=== PATIENT | male | born 1960 | race Caucasian/White ===

== ENCOUNTER → 2022-08-31 12:05 | Outpatient (CLI) | payer BC, SELFPAY ==
--- NOTE | ~2022-08-31 | XR_ITS ---
XR cervical spine 4-5V 08/31/2022 12:25 Indication: Left-sided neck pain. Cervicalgia. Procedure: 5 views of the cervical spine. Comparison: No prior studies for comparison. Findings: Straightening of cervical lordosis. There is severe degenerative disc disease at C4-5, C5-6 and C6-7. There are prominent ventral osteophytes. There is degenerative anterolisthesis at C7-T1. N o prevertebral soft tissue swelling. There is severe multilevel facet hypertrophy. There is mild dext roscoliosis. Lung apices are normal. Impression: 1: Severe cervical spondylosis. Reviewed, dictated and finalized at location A. ER SHIPMENTS Impression: 1: Severe cervical spondylosis.
== END ==
PROVIDERS: PCP Family Medicine; Visit Provider Family Medicine
DX: M47.892 Other spondylosis, cervical region (principal)
CPT/HCPCS: 72050

== ENCOUNTER 2022-10-18 10:00 | Outpatient (RCR) | payer BC, SELFPAY ==
--- NOTE | 2022-09-18 16:51 | PTOPEVAL1 ---
Assessment and note entered by Anita Ibarra, PT, DPT Evaluation Information Assessment Status Evaluation Diagnosis neck pain Onset ~1 year Subjective Information Pt states he has been having neck pain for a about a year. He states he has pain with most motions of his neck. 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 He reports no headaches or disturbed sleeping. Reported Pain Level Pain Score 0: Self Report Assessment PT Clinical Summary Christiano presents to therapy today for his initial evaluation with a diagnosis of neck pain. Today he demonstrates decreased active and passive cervical motion in all directions. He has an increased thoracic kyphosis as well as moderate forward and rounded shoulders. He demonstrates good shoulder ROM and strength. Skilled physical therapy services are indicated for postural education, to improve pain, to limit impairment, and to promote unlimited functional mobility. Plan of Care Interventions Electrical Stimulation,Hot Pack/Cold Pack,Manual Therapy,Neuro Re-education,Patient/Caregiver Educati,Therapeutic Activities,Therapeutic Exercise PT Services Indicated Yes Treatment Frequency and 1x/wk for 4 wks Duration These treatments will address the objective and functional deficits as defined above. The patient will be advanced safely and appropriately in order for the patient to progress towards his/her prior level of function. Additional exercises will be introduced and as well as a comprehensive home exercise program upon discharge, if needed, ?to ensure carryover of functional gains achieved in the clinic. This treatment plan has been reviewed and agreement upon by the patient.
--- NOTE | 2022-10-11 11:27 | PCPTNOTE ---
Patient called to cancel due to having to work.
--- NOTE | 2022-10-18 10:36 | PTOPDC ---
Assessment and note entered by Anita Ibarra, PT, DPT Evaluation Information Assessment Status Discharge Diagnosis neck pain Onset ~1 year Subjective Information Pt states he is doing great. He states he is 97% better. He states he got a new pillow and has been completing his exercises have really helped. He declines any headaches. He reports he has become so much more aware of his posture and states he has had a lot of changes in his day to day life. Reported Pain Level Pain Score 0: Self Report Assessment PT Clinical Summary Christiano presents to therapy today for his progress report following 3 visits of skilled therapy to treat his neck pain. Today he demonstrates improved cervical motions in all directions, improved posture, and improved body awareness. He reports only very mild pain in the last week. He has met all of his therapy goals and no longer required skilled therapy services and with be discharged at this time with instructions to continue his HEP upon discharge. Plan of Care PT Services Indicated No
== END 2022-10-18 11:12 | disposition home or self-care (01) ==
LOC: ANHGOSHPT 10:00
PROVIDERS: PCP Family Medicine; Visit Provider Nurse Practitioner
DX: M54.2 Cervicalgia (principal)
CPT/HCPCS: 97110; 97112; 97161; 97530